=== PATIENT | female | born 1960 | race Caucasian/White ===

== ENCOUNTER 2022-08-15 13:31 | Outpatient (CLI) | payer OTHER, SELFPAY ==
--- NOTE | 2022-08-15 13:40 | CRLHL7_ITS ---
For Patients: As a result of the Century Cures Act, medical imaging exams and procedure reports are released immediately into your electronic medical record. You may view this report before your referring provider. If you have questions, please contact your health care provider. BILATERAL SCREENING MAMMOGRAM WITH COMPUTER-AIDED DETECTION AND TOMOSYNTHESIS TECHNIQUE: CC and MLO views were obtained. These mammographic images have been obtained using full-field digital technique. These mammographic images were interpreted with the benefit of computer-aided detection. Breast Tomosynthesis was used in this interpretation. COMPARISON FILM: 07/19/2021, 07/15/2020, 05/06/2019. FINDINGS: The breasts are heterogeneously dense, which may obscure small masses IMPRESSION: There is no radiographic evidence for malignancy. ASSESSMENT: BI-RADS Category 1: Negative RECOMMENDATION: Routine screening mammogram in 1 year. A lay language report of this examination will be provided to the patient. Julio César Cortes M.D. Diagnostic Radiologist [email or web address] DAXA/quinn Transcribed: 7:27 p.m. MATT/Dictated by: Julio César Cortes MD @ 08/16/2022 11:29:00 AM (Electronically Signed)
== END 2022-08-15 13:32 | disposition home or self-care (01) ==
PROVIDERS: PCP Internal Medicine; Visit Provider Internal Medicine
DX: Z12.31 Encounter for screening mammogram for malignant neoplasm of breast (principal)
CPT/HCPCS: 77063; 77067

== ENCOUNTER 2022-11-16 07:31 | Outpatient (CLI) | payer OTHER, SELFPAY ==
[2022-11-16 12:42] LABS: Cholesterol* 192 mg/dL (90-199); Glucose* 108 mg/dL (60-115); HDL Cholesterol* 56 mg/dL (>=50); LDL Cholesterol Calculated 96 mg/dL (<100); Triglycerides* 202 mg/dL (40-149)
== END 2022-11-16 07:32 | disposition home or self-care (01) ==
LOC: NFLDREF 07:31
PROVIDERS: PCP Internal Medicine; Visit Provider Internal Medicine
DX: E78.5 Hyperlipidemia, unspecified (principal); E03.9 Hypothyroidism, unspecified; R73.03 Prediabetes
CPT/HCPCS: 80061; 82947; 84443

== ENCOUNTER 2023-07-26 08:09 | Outpatient (CLI) | payer OTHER, SELFPAY | END 2023-07-26 08:10 | disposition home or self-care (01) | LOC: NFLDREF 08:12 | PROVIDERS: PCP Internal Medicine; Visit Provider Internal Medicine | DX: M25.571 Pain in right ankle and joints of right foot (principal) | CPT/HCPCS: 86618 ==

== ENCOUNTER 2023-11-05 10:32 | Outpatient (CLI) | payer OTHER, SELFPAY ==
--- NOTE | 2023-11-05 10:45 | CRLHL7_ITS ---
For Patients: As a result of the Cures Act, medical imaging exams and procedure reports are released immediately into your electronic medical record. You may view this report before your referring provider. If you have questions, please contact your health care provider. BILATERAL SCREENING MAMMOGRAM WITH COMPUTER-AIDED DETECTION AND TOMOSYNTHESIS TECHNIQUE: CC and MLO views were obtained. These mammographic images have been obtained using full-field digital technique. These mammographic images were interpreted with the benefit of computer-aided detection. Breast Tomosynthesis was used in this interpretation. COMPARISON FILM: 08/15/22, 07/19/21, 07/15/20. FINDINGS: There are scattered areas of fibroglandular density IMPRESSION: There is no radiographic evidence for malignancy. ASSESSMENT: BI-RADS Category 1: Negative RECOMMENDATION: Routine screening mammogram in 1 year. A lay language report of this examination will be provided to the patient. Julio César Cortes M.D. Diagnostic Radiologist [email or web address] DAXA/[email or web address] Transcribed: 5:01 p.vineet caballero/Dictated by: Julio César Cortes MD @ 11/07/2023 10:57:00 AM (Electronically Signed)
--- OUTSIDE RECORDS SUMMARY | 2023-11-05 10:45 | XMS_ITS | Clinical Summary ---
Author Name Unknown Organization [facility] Address [place], [place] [address] Care Team Providers Care Cement Tester Assistant Name Role Phone Nelia Mancera MD Primary Care Provider [phone] Allergies No known active allergies Medications Medication Sig Dispensed Refills Start Date End Date Status levothyroxine (SYNTHROID) 50 mcg tablet Take 1 tablet by mouth before breakfast. 0 08/02/2016 Active simvastatin (ZOCOR) 10 mg tablet 0 07/02/2019 Active Active Problems Problem Noted Date Diagnosed Date History of colon polyps 08/26/2019 Overview: Colonoscopy 08/2019 normal, repeat in 5 years Social History Tobacco Use Types Packs/Day Years Used Date Smoking Tobacco: Never Smokeless Tobacco: Never Tobacco Cessation:Counseling Given: Yes Sex and Gender Information Value Date Recorded Sex Assigned at Not on file Gender Identity Not on file Sexual Orientation Not on file Obstetrics History Last Filed Vital Signs Vital Sign Reading Time Taken Comments Blood Pressure 136/71 03/27/2018 1:01 PM CDT Pulse 61 03/27/2018 1:01 PM CDT Temperature 37.1 ??C (98.8 ??F) 03/27/2018 1:01 PM CD T Respiratory Rate - - Oxygen Saturation 98% 03/27/2018 1:01 PM CDT Inhaled Oxygen Concentration - - Weight 78.1 kg (172 lb 3.2 oz) 08/02/2016 10:52 AM CDT Height - - Body Mass Index - - Plan of Treatment Health Maintenance Due Date Last Done Comments COVID-19 vaccine series (#1) 01/02/1960 Tdap 1970 Depression screening for age 12+ 1971 HIV for age 15-65 1974 BMI (ht and wt on same day) for age 18+ 1977 Hepatitis C screening for age 18-79 1977 Tetanus booster 1979 Lipids for age 45-75 2004 Zoster (shingles) series for age 50+ (1 of 2) 2009 Mammogram for age 45-75 07/26/2010 07/26/2009 Influenza for age 50-64 06/22/2023 Colonoscopy through age 75 08/26/202408/26, 08/26/2019, 08/26/2019, Additional history exists Pap test for age 21-65 11/20/2025 3, 08/09/2016, 08/09/2016, Additional history exists Pneumococcal series for age 6-64 Aged Out No longer eligible based on patient's age to complete this topic Care Teams Cement Tester Assistant Relationship Specialty Start Date End Date Nelia Mancera MD [address] [place] [id number] PCP - General Internal Medicine 09/28/14
== END 2023-11-05 10:33 | disposition home or self-care (01) ==
LOC: MAMMO 10:34
PROVIDERS: PCP Internal Medicine; Visit Provider Internal Medicine
DX: Z12.31 Encounter for screening mammogram for malignant neoplasm of breast (principal)
CPT/HCPCS: 77063; 77067

== ENCOUNTER 2024-01-17 08:02 | Outpatient (CLI) | payer OTHER, SELFPAY | END 2024-01-17 08:03 | disposition home or self-care (01) | LOC: NFLDREF 01-18 11:17 | PROVIDERS: PCP Internal Medicine; Referring Provider Internal Medicine; Visit Provider Internal Medicine | DX: R73.03 Prediabetes (principal); E03.9 Hypothyroidism, unspecified; E78.5 Hyperlipidemia, unspecified | CPT/HCPCS: 80061; 82947; 84439; 84443 ==

== ENCOUNTER 2024-11-17 10:33 | Outpatient (CLI) | payer MEDICARE, BC, SELFPAY ==
--- NOTE | 2024-11-17 10:45 | CRLHL7_ITS ---
For Patients: As a result of the Century Cures Act, medical imaging exams and procedure reports are released immediately into your electronic medical record. You may view this report before your referring provider. If you have questions, please contact your health care provider. BILATERAL SCREENING MAMMOGRAM WITH COMPUTER-AIDED DETECTION AND TOMOSYNTHESIS TECHNIQUE: CC and MLO views were obtained. These mammographic images have been obtained using full-field digital technique. These mammographic images were interpreted with the benefit of computer-aided detection. Breast Tomosynthesis was used in this interpretation. COMPARISON FILM: 11/05/23, 08/15/22, 07/19/21. FINDINGS: The breasts are heterogeneously dense, which may obscure small masses. IMPRESSION: There is no radiographic evidence for malignancy. ASSESSMENT: BI-RADS Category 1: Negative RECOMMENDATION: Routine screening mammogram in 1 year. A lay language report of this examination will be provided to the patient. Julio César Cortes M.D. Diagnostic Radiologist [email or web address] SP/Dictated by: Julio César Cortes MD @ 11/17/2024 12:24:00 PM (Electronically Signed)
== END 2024-11-17 10:34 | disposition home or self-care (01) ==
LOC: MAMMO 10:35
PROVIDERS: PCP Internal Medicine; Visit Provider Internal Medicine
DX: Z12.31 Encounter for screening mammogram for malignant neoplasm of breast (principal); R92.333 Mammographic heterogeneous density, bilateral breasts
CPT/HCPCS: 77063; 77067

== ENCOUNTER 2025-01-27 07:55 | Outpatient (CLI) | payer MEDICARE, BC, SELFPAY | END 2025-01-27 07:56 | disposition home or self-care (01) | LOC: NFLDREF 02-02 02:23 | PROVIDERS: PCP Internal Medicine; Referring Provider Internal Medicine; Visit Provider Internal Medicine | DX: E03.9 Hypothyroidism, unspecified (principal); R73.03 Prediabetes; E78.5 Hyperlipidemia, unspecified | CPT/HCPCS: 80061; 82947; 84439; 84443 ==

== ENCOUNTER 2025-03-26 13:23 | Outpatient (CLI) | payer MEDICARE, BC, SELFPAY ==
--- NOTE | 2025-03-26 13:30 | CRLHL7_ITS ---
For Patients: As a result of the Century Cures Act, medical imaging exams and procedure reports are released immediately into your electronic medical record. You may view this report before your referring provider. If you have questions, please contact your health care provider. DXA BONE MINERAL DENSITY STUDY Current height (in): 62. Weight (lb): 160. Menopause age: 89 Ethnicity: White. 1. Have you had a previous hip or vertebral fracture? No. 2. Have you had any fractures during your adult life which did not result from significant trauma (e.g., auto accident)? No. 3. Did either of your parents have a hip fracture? Yes. 4. Do you smoke? No. 5. Have you ever taken Glucocorticoids? Yes. 6. Do you have rheumatoid arthritis? No. 7. Do you have secondary osteoporosis? No. 8. Do you drink 3 or more alcoholic drinks per day? No. 9. Are you being treated for osteoporosis? No. 10. Have you ever taken any of the following medications: Actonel, Evista, Fosamax, Miacalcin, Reclast, Boniva, Forteo, HRT (i.e. estrogen/hormone therapy), Protelos, Prolia, Vitamin D, Calcium, other ??? please specify. ANSWER: Yes, HRT. 11. Do you have any of the following medical conditions: Anorexia or bulimia, asthma or emphysema, end stage renal disease, hyperparathyroidism, any seizure disorders, cancer, inflammatory bowel diseases, hysterectomy, other ??? please specify. ANSWER: No. 12. What was your maximum height (inches)? 64. 13. Do you perform weight bearing exercise regularly? Yes. 14. Do you regularly consume dairy products? Yes. 15. Do you drink caffeinated beverages? Yes. 16. At what age did your period start? 11. 17. Are you premenopausal? No. 18. How many full term pregnancies have you had? 2. 19. Have you ever missed your period for more than 6 months in a row (not including or menopause)? No. TECHNIQUE: Bone mineral density study was performed using the [employer]. FINDINGS: The results of the study expressed as bone mineral density (BMD) are as follows: Lumbar spine L1 to L4: BMD: 1.181 g/cm2. T-score: 1.2. Z-score: 3.0. Neck Left: BMD: 0.814 g/cm2. T-score: -0.3. Z-score: 1.2. Right: BMD: 0.844 g/cm2. T-score: -0.0. Z-score: 1.5. Total Left: BMD: 0.993 g/cm2. T-score: 0.4. Z-score: 1.7. Right: BMD: 1.031 g/cm2. T-score: 0.7. Z-score: 2.0. IMPRESSION: Normal bone density. Compared with scan of 08/17/2016, the bone mineral density has increased by 1.9 percent at the spine and increased by 0.7 percent at the hip. Julio César Cortes M.D. Diagnostic Radiologist [email or web address] DAXA/iván DW/Dictated by: Julio César Cortes MD @ 03/30/2025 9:08:00 AM (Electronically Signed)
== END 2025-03-26 13:24 | disposition home or self-care (01) ==
LOC: RAD 13:25
PROVIDERS: PCP Internal Medicine; Visit Provider Internal Medicine
DX: Z78.0 Asymptomatic menopausal state (principal)
CPT/HCPCS: 77080